=== PATIENT | female | born 1970 | race Caucasian/White ===

== ENCOUNTER 2021-10-08 10:07 | Emergency (ER) | payer OTHER ==
[~2021-10-08 10:07] MED LIST: BACLOFEN 10MG T10 MG PO; NAPROXEN500 MG PO; VOLTAREN **OUT75 MG PO
[2021-10-08] MEDS ORDERED: PERCOCET 7.5-31 EACH PO (13:31)
== END 2021-10-08 15:32 | disposition home or self-care (01) ==
LOC: FER 10:07
DX: S32.018A Other fracture of first lumbar vertebra, initial encounter for closed fracture (principal); F17.210 Nicotine dependence, cigarettes, uncomplicated; Z88.2 Allergy status to sulfonamides; Z88.6 Allergy status to analgesic agent; W01.0XXA Fall on same level from slipping, tripping and stumbling without subsequent striking against object, initial encounter; Y92.89 Other specified places as the place of occurrence of the external cause
CPT/HCPCS: 72131; J1885